=== PATIENT | male | born 1970 | race Caucasian/White ===

== ENCOUNTER 2017-12-28 21:03 | Emergency (ER) | payer SELFPAY ==
[~2017-12-28] VITALS: Ht 182.9 cm; Wt 77.1 kg
--- NOTE | 2017-12-28 21:03 | NUR ---
PT BIB [facility], PREBOOK. TAKEN TO CHAIR E
[2017-12-28 21:13] VITALS: BP 131/68
[2017-12-28 21:25] VITALS: BP 131/68
--- NOTE | 2017-12-28 21:25 | NUR ---
Patient discharged with v/s stable. Written and verbal after care instructions given and explained. Patient verbalized understanding. Police with in custody. All questions addressed prior to discharge. Advised to follow up with [facility]D.
== END 2017-12-28 21:25 ==
LOC: MED 21:03
DX: Z02.89 Encounter for other administrative examinations (principal); R03.0 Elevated blood-pressure reading, without diagnosis of hypertension; V49.40XA Driver injured in collision with unspecified motor vehicles in traffic accident, initial encounter; Y93.89 Activity, other specified; Y92.89 Other specified places as the place of occurrence of the external cause; Y99.8 Other external cause status
CPT/HCPCS: 99283